=== PATIENT | male | born 1950 | race African-American/Black ===

== ENCOUNTER 2018-02-24 15:55 | Emergency (ER) | payer OTHER, MEDICARE ==
[~2018-02-24] VITALS: Ht 177.8 cm; Wt 104.8 kg
[2018-02-24 15:59] VITALS: BP 160/109
--- NOTE | 2018-02-24 16:00 | NUR ---
PT TRIAGED AND SENT TO ER LOBBY
--- NOTE | 2018-02-24 17:00 | NUR ---
PT REASSESSED, NO CHANGE IN CONDITION. VSS.
--- NOTE | 2018-02-24 17:40 | NUR ---
PT AMBULATES TO BED 1
--- NOTE | 2018-02-24 17:56 | NUR ---
BIB SELF REPORTS MOIST PRODUCTIVE COUGH X 2 DAYS. DENIES ANY BODY ACHES CHEST PAIN OR HEAD ACHE AT THIS TIME. DENIES N/V/D; SKIN IS PINK/WARM/DRY; AAOX4 WITH EVEN AND STEADY GAIT; LUNGS CLEAR BL; HR EVEN AND REGULAR; PT DENIES ANY FEVER, CP, SOB AT THIS TIME; PATIENT STATES PAIN OF 0/10 AT THIS TIME; VSS; PATIENT POSITIONED FOR COMFORT; HOB ELEVATED; BEDRAILS UP X2; BED DOWN. ER MD MADE AWARE OF PT STATUS.
--- NOTE | 2018-02-24 18:18 | NUR ---
pt refused to get into gown
--- NOTE | 2018-02-24 19:10 | NUR ---
PT SITTING UP IN CHAIR, VSS.
--- NOTE | 2018-02-24 19:10 | NUR ---
BEDSIDE REPORT GIVEN TO RACHEL COBOS.
[2018-02-24 19:52] VITALS: BP 146/92
--- NOTE | 2018-02-24 19:53 | NUR ---
Patient discharged with v/s stable. Written and verbal after care instructions given and explained. Patient alert, oriented and verbalized understanding of instructions. Ambulatory with steady gait. All questions addressed prior to discharge. ID band removed. Patient advised to follow up with PMD. Rx of AZITHROMYCIN, GUAIATUSSIN given. Patient educated on indication of medication including possible reaction and side effects. Opportunity to ask questions provided and answered.
== END 2018-02-24 19:52 | disposition home or self-care (01) ==
LOC: MED 15:55
DX: J20.9 Acute bronchitis, unspecified (principal); J45.909 Unspecified asthma, uncomplicated
CPT/HCPCS: 71045; 99283; Q0092

== ENCOUNTER 2019-03-21 19:37 | Emergency (ER) | payer MEDICARE, BC ==
[~2019-03-21] VITALS: Ht 172.7 cm; Wt 105.9 kg
[2019-03-21 20:05] VITALS: BP 164/83
--- NOTE | 2019-03-21 21:28 | NUR ---
Pt ambulated to bed 7.
--- NOTE | 2019-03-21 21:30 | NUR ---
PT 68 Y/O MALE BIB FOR C/O COUGH X 3 DAYS. RESPIRATIONS ARE EVEN AND UNLABORED. SKIN IS WARM AND DRY TO TOUCH. RONCHI NOTED IN UPPER LOBES BILAT ON INSPIRATION. DENIES N/V/D. AFEBRILE. PT STATES HE TOOK ROBITUSSIN AT HOME FOR COUGH AND INHALER BUT IT WAS INEFFECTIVE. SKIN IS WARM AND DRY TO TOUCH. BED LOCKED AND IN LOWEST POSITION. PT ON MONITOR. AT BEDSIDE. MEDHX: ASTHMA, HTN ALLERGIES: NKA
--- NOTE | 2019-03-21 23:15 | NUR ---
Dr. Hou examining patient.
[2019-03-21] MEDS ORDERED: ALBUTEROL SULFATE/IPRATROPIU 3 ML SOL IH STA (23:22)
--- NOTE | 2019-03-21 23:48 | NUR ---
PT TAKEN TO RAD
--- NOTE | 2019-03-21 23:53 | NUR ---
PT RETURN FROM RAD
[2019-03-22 01:45] VITALS: BP 168/87
--- NOTE | 2019-03-22 01:45 | NUR ---
Patient discharged with v/s stable. Written and verbal after care instructions given and explained. Patient alert, oriented and verbalized understanding of instructions. Ambulatory with steady gait. All questions addressed prior to discharge. ID band removed. Patient advised to follow up with PMD. Rx of ALBUTEROL, AZITHROMYCIN given. Patient educated on indication of medication including possible reaction and side effects. Opportunity to ask questions provided and answered.
== END 2019-03-22 01:45 | disposition home or self-care (01) ==
LOC: MED 19:37
DX: J40 Bronchitis, not specified as acute or chronic (principal); J45.909 Unspecified asthma, uncomplicated; I10 Essential (primary) hypertension
CPT/HCPCS: 71046; 99283; J7620

== ENCOUNTER 2021-01-09 11:04 | Emergency (ER) | payer MEDICARE, BC ==
[~2021-01-09] VITALS: Ht 160 cm; Wt 103.9 kg
[2021-01-09 11:10] VITALS: BP 170/93
--- NOTE | 2021-01-09 11:20 | NUR ---
pt ambulated to bed 3
--- NOTE | 2021-01-09 11:24 | NUR ---
radiology at bedside doing xray
--- NOTE | 2021-01-09 11:26 | NUR ---
70 Y/O M BIB DAUGHTER FROM HOME, C/O NON-PRODUCTIVE COUGH, CHEST CONGESTION THAT STARTED TODAY. DENIES N/V/D. DENIES CP OR SOB. RESP ARE EVEN AND UNLABORED. LUNG SOUNDS ARE CLEAR/DIMINISHED. PMH: ASTHMA, HTN, BRONCHITIS NKA MED: NASAL SPRAY
--- NOTE | 2021-01-09 11:59 | NUR ---
RAY VERONICA AT BEDSIDE TO CONSULT WITH PATIENT.
--- NOTE | 2021-01-09 12:09 | NUR ---
ERROL AT BEDSIDE TO CONSULT WITH PT
[2021-01-09] MEDS ORDERED: ROBAC PO (12:18)
[2021-01-09] MEDS ORDERED: PRON INH (12:18)
--- NOTE | 2021-01-09 12:23 | NUR ---
Patient discharged with v/s stable. Written and verbal after care instructions ABOUT COUGH given and explained. Patient alert, oriented and verbalized understanding of instructions. Ambulatory with steady gait. All questions addressed prior to discharge. ID band removed. Patient advised to follow up with PMD. Rx of ALBUTEROL SULFATE AND GUAFENESIN-CODEINE SYRUP given. Patient educated on indication of medication including possible reaction and side effects. Opportunity to ask questions provided and answered.
== END 2021-01-09 12:23 | disposition home or self-care (01) ==
LOC: MED 11:04
DX: J40 Bronchitis, not specified as acute or chronic (principal); J45.909 Unspecified asthma, uncomplicated; I10 Essential (primary) hypertension; Z79.899 Other long term (current) drug therapy
CPT/HCPCS: 71045; 99283